=== PATIENT | female | born 1960 | race Caucasian/White ===

== ENCOUNTER 2024-03-13 09:51 | Day surgery (SDC) | payer MEDICARE, OTHER ==
[2024-03-13] MEDS ORDERED: Propofol 200 MG/20 ML SDV ONE (10:36)
[2024-03-13] MEDS ORDERED: fentaNYL 50 MCG/ML SDV ONE (10:36)
[2024-03-13] MEDS ORDERED: Midazolam 1 MG/ML 2 ML SDV ONE (10:36)
[2024-03-13] MEDS: Lactated Ringers 1,000 ML IV SCH (13:52)
== END 2024-03-13 13:00 | disposition home or self-care (01) ==
LOC: JP.SDS 09:51
PROVIDERS: ATTEND Surgery
DX: Z12.11 Encounter for screening for malignant neoplasm of colon (principal); K57.30 Diverticulosis of large intestine without perforation or abscess without bleeding; K21.9 Gastro-esophageal reflux disease without esophagitis
CPT/HCPCS: G0121; J2250; J2704; J3010; J7120; 00812-QZ